=== PATIENT | female | born 1965 | race Caucasian/White ===

== ENCOUNTER 2021-04-26 17:11 | Emergency (ER) | payer SELFPAY ==
[~2021-04-26] VITALS: Ht 160 cm; Wt 75.9 kg
[2021-04-26] MEDS ORDERED: METO50TA15 PO (17:29)
--- NOTE | 2021-04-26 17:29 | ED General ---
General Stated Complaint: HYPERTENSION;HEADACHE Source of Information: Patient History of Present Illness Date Seen by Provider: Apr 26, 2021 Time Seen by Provider: 17:24 Initial Comments 56-year-old female presents via EMS with complaint of headache, blurred vision and high blood pressure beginning earlier today. Patient mentions she has been out of her metoprolol for the past 3 weeks and does not currently have a primary care physician. Past medical history significant for heart attack 5 years ago a s well as a mini stroke. She is a smoker. Denies chest pain or shortness of air, swelling of extremities. Denies recent illness, fever chills or cough. Allergies and Home Medications Allergies Coded Allergies: ibuprofen (Unverified Adverse Reaction, Intermediate, Hallucination, 04/26/21) Tetanus Vaccines and Toxoid (Unverified Adverse Reaction, Mild, Rash, 04/26/21) meperidine (Unverified Adverse Reaction, Mild, Nausea/vomiting, 04/26/21) nalbuphine (Unverified Adverse Reaction, Mild, nausea and vomiting, 04/26/21) promethazine (Unverified Adverse Reaction, Mild, Headache, 04/26/21) Iodine and Iodide Containing Produc (Unverified Adverse Reaction, Unknown, 04/26/21) Penicillins (Unverified Adverse Reaction, Unknown, Shortness of Breathe, Rash, 04/26/21) Sulfa (Sulfonamide Antibiotics) (Unverified Adverse Reaction, Unknown, 04/26/21) chlorpromazine (Unverified Adverse Reaction, Unknown, Angioedema, 04/26/21) codeine (Unverified Adverse Reaction, Unknown, Shortness of breath/Wheezing, Rash, 04/26/21) cortisone (Unverified Adverse Reaction, Unknown, 04/26/21) Home Medications Metoprolol Tartrate 25 Mg Tablet, 25 MG PO BID Prescribed by: SIMON ASHFORD on 04/26/21 1814 Patient Home Medication List Home Medication List Reviewed: Yes Review of Systems Review of Systems Constitutional: No chills, No dizziness, No fever, No malaise, No weakness EENTM: see HPI, blurred vision; No ear discharge, No hearing loss, No hoarseness, No mouth pain, No mouth swelling, No epistaxis, No nose congestion Respiratory: No cough, No short of breath Cardiovascular: No chest pain, No edema, No palpitations Gastrointestinal: No abdominal pain, No nausea, No vomiting Musculoskeletal: No back pain, No joint pain Skin: No change in color, No rash Psychiatric/Neurological: Headache; Denies Numbness, Denies Paresthesia, Denies Tingling, Denies Tremors, Denies Weakness Past Xupsjqk-Gonxsm-Dmefso Hx Patient Social History Tobacco Use?: Yes Physical Exam Vital Signs Vital Signs - First Documented 04/26/21 17:11 Temp 36.1 Pulse 73 Resp 20 B/P (MAP) 162/100 (120) Pulse Ox 97 O2 Delivery Room Air Capillary Refill : Height, Weight, BMI Height: '" Weight: lbs. oz. kg; BMI Method: General Appearance: No Apparent Distress, WD/WN Eyes: Bilateral Eye Normal Inspection, Bilateral Eye PERRL, Bilateral Eye EOMI HEENT: PERRL/EOMI, Normal ENT Inspection Neck: Normal Inspection, Non Tender, Supple Respiratory: Chest Non Tender, Lungs Clear, Normal Breath Sounds, No Accessory Muscle Use, No Respiratory Distress Cardiovascular: Regular Rate, Rhythm, No Edema, No Gallop, No JVD Gastrointestinal: Non Tender, Soft Back: Normal Inspection, No CVA Tenderness Extremity: Normal Capillary Refill, Normal Inspection, Non Tender Neurologic/Psychiatric: Alert, Oriented x3, No Motor/Sensory Deficits Skin: Normal Color, Warm/Dry Progress/Results/Core Measures Suspected Sepsis SIRS Temperature: Pulse: Respiratory Rate: Laboratory Tests 04/26/21 17:25: White Blood Count 8.5 Blood Pressure / Mean: Laboratory Tests 04/26/21 17:25: Creatinine 0.68, Platelet Count 254, Total Bilirubin 0.2 Results/Orders Lab Results Laboratory Tests Test 04/26/21 17:25 04/26/21 17:35 Range/Units White Blood Count 8.5 4.3-11.0 10^3/uL Red Blood Count 4.36 4.35-5.85 10^6/uL Hemoglobin 13.4 11.5-16.0 G/DL Hematocrit 39 35-52 % Mean Corpuscular Volume 90 80-99 FL Mean Corpuscular Hemoglobin 31 25-34 PG Mean Corpuscular Hemoglobin Concent 34 32-36 G/DL Red Cell Distribution Width 12.8 10.0-14.5 % Platelet Count 254 130-400 10^3/uL Mean Platelet Volume 10.0 7.4-10.4 FL Immature Granulocyte % (Auto) 0 % Neutrophils (%) (Auto) 51 42-75 % Lymphocytes (%) (Auto) 36 12-44 % Monocytes (%) (Auto) 8 0-12 % Eosinophils (%) (Auto) 4 0-10 % Basophils (%) (Auto) 1 0-10 % Neutrophils # (Auto) 4.4 1.8-7.8 X 10^3 Lymphocytes # (Auto) 3.0 1.0-4.0 X 10^3 Monocytes # (Auto) 0.7 0.0-1.0 X 10^3 Eosinophils # (Auto) 0.3 0.0-0.3 10^3/uL Basophils # (Auto) 0.1 0.0-0.1 10^3/uL Immature Granulocyte # (Auto) 0.0 0.0-0.1 10^3/uL Sodium Level 141 135-145 MMOL/L Potassium Level 3.9 3.6-5.0 MMOL/L Chloride Level 108 H 98-107 MMOL/L Carbon Dioxide Level 25 21-32 MMOL/L Anion Gap 8 5-14 MMOL/L Blood Urea Nitrogen 11 7-18 MG/DL Creatinine 0.68 0.60-1.30 MG/DL Estimat Glomerular Filtration Rate > 60 BUN/Creatinine Ratio 16 Glucose Level 100 70-105 MG/DL Calcium Level 8.5 8.5-10.1 MG/DL Corrected Calcium 8.7 8.5-10.1 MG/DL Total Bilirubin 0.2 0.1-1.0 MG/DL Aspartate Amino Transf (AST/SGOT) 13 5-34 U/L Alanine Aminotransferase (ALT/SGPT) 9 0-55 U/L Alkaline Phosphatase 81 40-136 U/L Total Protein 6.4 6.4-8.2 GM/DL Albumin 3.8 3.2-4.5 GM/DL Urine Color YELLOW Urine Clarity CLEAR Urine pH 7.5 5-9 Urine Specific [place] 1.010 L 1.016-1.022 Urine Protein NEGATIVE NEGATIVE Urine Glucose (UA) NEGATIVE NEGATIVE Urine Ketones NEGATIVE NEGATIVE Urine Nitrite NEGATIVE NEGATIVE Urine Bilirubin NEGATIVE NEGATIVE Urine Urobilinogen 0.2 < = 1.0 MG/DL Urine Leukocyte Esterase NEGATIVE NEGATIVE Urine RBC (Auto) NEGATIVE NEGATIVE Urine RBC NONE /HPF Urine WBC 0-2 /HPF Urine Squamous Epithelial Cells RARE /HPF Urine Crystals NONE /LPF Urine Bacteria MODERATE H /HPF Urine Casts NONE /LPF Urine Mucus NEGATIVE /LPF Urine Culture Indicated YES My Orders Orders - SIMON ASHFORD DO Ed Iv/Invasive Line Start (04/26/21 17:29) Ekg Tracing (04/26/21 17:29) Cbc With Automated Diff (04/26/21 17:29) Comprehensive Metabolic Panel (04/26/21 17:29) Urinalysis (04/26/21 17:29) Urine Culture (04/26/21 17:35) Acetaminophen Tablet (Tylenol Tablet) (04/26/21 18:30) Medications Given in ED Current Medications Medications Dose Ordered Sig/Jasvir Route Start Time Stop Time Status Last Admin Dose Admin Acetaminophen 1,000 mg ONCE ONCE PO 04/26/21 18:30 04/26/21 18:27 DC 04/26/21 18:26 1,000 MG Vital Signs/I&O 04/26/21 04/26/21 04/26/21 17:11 18:26 18:27 Temp 36.1 36.1 36.0 Pulse 73 74 Resp 20 19 B/P (MAP) 162/100 (120) 168/105 (120) Pulse Ox 97 97 O2 Delivery Room Air Room Air Capillary Refill : Progress Note : Progress Note Uneventful ER stay, patient was given Nitropaste in route to the ER by EMS for a blood pressure 170 systolic. This was immediately removed on arrival, patient's blood pressure eventually dropped to 110's systolic. Did have slight headache, no neurologic deficit. Review of her labs without a significant abnormality. No EKG changes. Instructed patient on the need for taking her blood pressure medicine regularly and having a primary care physician to manage her long-term condition. Patient says she wants to establish a new doctor and that she just moved back to [facility], actually lives closer to [facility] so she is trying make a decision where to go. Previously took 50 mg metoprolol twice a day, however patient is been off the medicine for at least 3 weeks, decide to start her off on 25 metoprolol twice daily until she sees her PCP. ECG Initial ECG Impression Date: Apr 26, 2021 Initial ECG Impression Time: 17:21 Initial ECG Rate: 74 Initial ECG Rhythm: Normal Sinus Initial ECG Intervals: Normal Initial ECG Impression: Normal Initial ECG Comparisson: No Previous ECG Available Departure Impression Primary Impression: Uncontrolled hypertension Additional Impression: Medical non-compliance Disposition: 01 HOME, SELF-CARE Condition: Improved Departure-Patient Inst. Decision time for Depature: 18:14 [facility]errals: [facility]/ Patient Instructions: High Blood Pressure ED Add. Discharge Instructions: Call and establish a new Primary Care doctor in 2 weeks regarding your blood pr essure Scripts Metoprolol Tartrate (Metoprolol Tartrate) 25 Mg Tablet 25 MG PO BID, #60 TAB Prov: SIMON ASHFORD DO 04/26/21 SIMON ASHFORD DO Apr 26, 2021 17:29
[2021-04-26 17:42] LABS: HEMATOCRIT 39 % (35-52); HEMOGLOBIN 13.4 G/DL (11.5-16.0); MEAN CORPUSCULAR HEMOGLOBIN 31 PG (25-34); MEAN CORPUSCULAR HGB CONC 34 G/DL (32-36); MEAN CORPUSCULAR VOLUME 90 FL (80-99); NEUTROPHILS % (AUTO) 51 % (42-75); PLATELET COUNT 254 10^3/uL (130-400); WHITE BLOOD COUNT 8.5 10^3/uL (4.3-11.0)
[2021-04-26 17:43] LABS: BASOPHILS # (AUTO) 0.1 10^3/uL (0.0-0.1); BASOPHILS % (AUTO) 1 % (0-10); EOSINOPHILS # (AUTO) 0.3 10^3/uL (0.0-0.3); EOSINOPHILS % (AUTO) 4 % (0-10); LYMPHOCYTES % (AUTO) 36 % (12-44); MONOCYTES # (AUTO) 0.7 X 10^3 (0.0-1.0); MONOCYTES % (AUTO) 8 % (0-12); NEUTROPHILS # (AUTO) 4.4 X 10^3 (1.8-7.8)
[2021-04-26 17:51] LABS: BILIRUBIN,URINE NEGATIVE (NEGATIVE); CLARITY,URINE CLEAR; COLOR,URINE YELLOW; GLUCOSE, URINE (UA) NEGATIVE (NEGATIVE); KETONES,URINE NEGATIVE (NEGATIVE); LEUKOCYTE ESTERASE ,URINE NEGATIVE (NEGATIVE); NITRITE,URINE NEGATIVE (NEGATIVE); PH,URINE 7.5 (5-9); PROTEIN,URINE NEGATIVE (NEGATIVE)
[2021-04-26 17:51] LABS: CARBON DIOXIDE 25 MMOL/L (21-32); CHLORIDE 108 MMOL/L (98-107); POTASSIUM 3.9 MMOL/L (3.6-5.0); SODIUM 141 MMOL/L (135-145)
[2021-04-26 17:52] LABS: ALANINE AMINOTRANSFERASE 9 U/L (0-55); ALBUMIN 3.8 GM/DL (3.2-4.5); ALKALINE PHOSPHATASE 81 U/L (40-136); BILIRUBIN,TOTAL 0.2 MG/DL (0.1-1.0); BUN/CREATININE RATIO 16; CALCIUM 8.5 MG/DL (8.5-10.1); CREATININE SERUM 0.68 MG/DL (0.60-1.30); GFR ESTIMATED > 60; GLUCOSE 100 MG/DL (70-105); TOTAL PROTEIN 6.4 GM/DL (6.4-8.2)
[2021-04-26 18:00] LABS: BACTERIA,URINE MODERATE /HPF; SQUAMOUS EPITHELIAL CELL,UR RARE /HPF; WBC,URINE 0-2 /HPF
[2021-04-26] MEDS ORDERED: METO-333 PO (18:14)
[2021-04-26 18:27] VITALS: BP 168/105
[2021-04-26] MEDS ORDERED: ACETAMINOPHEN 500 MG TAB (TYLENOL) PO ONE (18:30)
== END 2021-04-26 18:27 | disposition home or self-care (01) ==
LOC: EDUNIT# 17:14 → ER FS 17:15
DX: I10 Essential (primary) hypertension (principal); I25.2 Old myocardial infarction; F17.200 Nicotine dependence, unspecified, uncomplicated; Z91.19 Patient's noncompliance with other medical treatment and regimen
CPT/HCPCS: 36415; 80053; 81000; 85025; 87077; 87088; 93005

== ENCOUNTER 2021-12-13 13:35 | Emergency (ER) | payer OTHER ==
[~2021-12-13 13:35] MED LIST: METO-333 PO; METO50TA15 PO
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
[2021-12-13] MEDS ORDERED: CYCL10TA25 PO (14:40)
[2021-12-13] MEDS ORDERED: CYCLOBENZAPRINE 10 MG (FLEXERIL) TAB PO SCH (14:45)
[2021-12-13] MEDS ORDERED: ACETAMINOPHEN 500 MG TAB (TYLENOL) PO ONE (14:45)
[2021-12-13 15:05] VITALS: BP 102/54
== END 2021-12-13 15:18 | disposition home or self-care (01) ==
LOC: EDUNIT# 13:35 → ER FS 13:36
DX: S13.9XXA Sprain of joints and ligaments of unspecified parts of neck, initial encounter (principal); S43.401A Unspecified sprain of right shoulder joint, initial encounter; S80.01XA Contusion of right knee, initial encounter; M79.672 Pain in left foot; F17.210 Nicotine dependence, cigarettes, uncomplicated; V89.2XXA Person injured in unspecified motor-vehicle accident, traffic, initial encounter
CPT/HCPCS: 99283